=== PATIENT | female | born 1945 | race Caucasian/White ===

== ENCOUNTER 2017-09-19 15:22 | Outpatient (CLI) | payer MEDICARE, OTHER ==
--- NOTE | 2017-09-19 17:17 | RAD ---
THORACIC SPINE RADIOGRAPHS 3 VIEWS: DATE: 09/19/17. PROVIDED CLINICAL HISTORY: Followup kyphoplasty. FINDINGS: No comparisons. Thoracic alignment appears normal. Changes of prior kyphoplasty are noted at what is probably T12. There is mild loss of vertebral body height. Vertebral body heights appear otherw ise preserved. Pedicles appear intact. No lytic or blastic lesions are radiographically apparent. IMPRESSION: As above. POS: [facility]
== END 2017-09-19 15:23 | disposition home or self-care (01) ==
LOC: TBSIIMAG 15:22
PROVIDERS: ATTEND Neurological Surgery
DX: S22.008A Other fracture of unspecified thoracic vertebra, initial encounter for closed fracture (principal); R29.890 Loss of height
CPT/HCPCS: 72070